=== PATIENT | female | born 1970 | race Caucasian/White ===

== ENCOUNTER 2017-01-17 19:54 | Emergency (ER) | payer OTHER, SELFPAY ==
[2017-01-17] MEDS ORDERED: Sulfameth/Trimethoprim DS 800-160mg TAB ONE (20:29)
[2017-01-17] MEDS ORDERED: Acetaminophen/Codeine 30-300mg Tablet ONE (20:29)
== END 2017-01-17 21:15 | disposition home or self-care (01) ==
LOC: MADERS 19:54
DX: L02.212 Cutaneous abscess of back [any part, except buttock and flank] (principal); L03.312 Cellulitis of back [any part except buttock and flank]; F17.210 Nicotine dependence, cigarettes, uncomplicated
CPT/HCPCS: 10060

== ENCOUNTER 2017-01-21 17:15 | Emergency (ER) | payer SELFPAY | END 2017-01-21 18:18 | disposition home or self-care (01) | LOC: MADERS 17:15 | DX: Z48.01 Encounter for change or removal of surgical wound dressing (principal); F17.210 Nicotine dependence, cigarettes, uncomplicated | CPT/HCPCS: 99282 ==

== ENCOUNTER 2017-06-09 17:21 | Emergency (ER) | payer SELFPAY ==
[~2017-06-09 17:21] MED LIST: Sodium Chloride 0.9% 1,000 ML BAG ONE; Sodium Chloride 0.9% 100 ML BAG ONE; Sodium Chloride Irrig Solution 250 ML BOT ONE
[2017-06-09] MEDS ORDERED: HYDROcodone/Acetaminophen 10/325 mg Tablet ONE (18:41)
[2017-06-09] MEDS ORDERED: Piperacillin/Tazobactam 3.375 GM VIAL ONE (18:41)
[2017-06-09 19:10] LABS: Band 2 % (5-11); Hemoglobin 14.1 g/dL (12.0-16.0); Lymphocytes 7 % (21-51); MDiff Complete? YES; Mean Corpuscular HGB CONC 31.7 g/dL (32.0-36.0); Mean Corpuscular Hemoglobin 27.5 pg (27.0-31.0); Mean Corpuscular Volume 86.6 fl (81.0-99.0); Mean Platelet Volume 9.1 fL (7.4-10.4); Monocytes 8 % (0-10); Neutrophil 83 % (42-75); PLT Morphology Comment Appears Increased; Platelet Count 416 thou/uL (130-400); RBC Distribution Width 12.9 % (11.5-14.5); Red Blood Cell (RBC) Count 5.11 mill/uL (4.20-5.40); White Blood Cell (WBC) Count 20.1 thou/uL (4.8-10.8)
[2017-06-09 19:18] LABS: ALT (SGPT) 10 U/L (8-55); AST (SGOT) 7 U/L (5-34); Albumin 3.9 g/dL (3.5-5.0); Alkaline Phosphatase 134 U/L (40-150); Anion Gap 15 mmol/L (10-20); BUN (Urea Nitrogen) 8 mg/dL (7.0-18.7); Bilirubin, Total 0.3 mg/dL (0.2-1.2); Calc. Creatinine Clearance 0 mL/min (70-130); Calcium 8.9 mg/dL (7.8-10.44); Carbon Dioxide 20 mmol/L (22-29); Chloride 101 mmol/L (98-107); Estimated GFR-MDRD 69; Globulin 3.3 g/dL (2.4-3.5); Glucose 323 mg/dL (70-105); Potassium 3.9 mmol/L (3.5-5.1); Protein, Total 7.2 g/dL (6.0-8.3); Sodium 132 mmol/L (136-145)
[2017-06-09] MEDS ORDERED: Potassium Chloride 20 MEQ TAB ONE (20:59)
[2017-06-09] MEDS ORDERED: Insulin Regular 300 UNITS/3 ML VIAL ONE (20:59)
== END 2017-06-09 21:31 | disposition short-term general hospital (02) ==
LOC: MADERS 17:21
DX: L02.413 Cutaneous abscess of right upper limb (principal); L03.113 Cellulitis of right upper limb; E11.9 Type 2 diabetes mellitus without complications; F17.210 Nicotine dependence, cigarettes, uncomplicated; Z79.899 Other long term (current) drug therapy
CPT/HCPCS: 10060; 36416; 80053; 85025; 87070; 87077; 87186; 87205; 96361; 96365; 96367; 96372; J1815; J2543; J3370; J7050

== ENCOUNTER 2018-02-19 21:22 | Emergency (ER) | payer OTHER, SELFPAY ==
[2018-02-19] MEDS ORDERED: Amoxicillin/Potassium Clav 875 MG TAB ONE (21:54)
[2018-02-19] MEDS ORDERED: HYDROcodone/Acetaminophen 10/325 mg Tablet ONE (21:54)
[2018-02-19] MEDS ORDERED: methylPREDNISolone Sod Succ/PF 125 MG/2 ML VIAL ONE (21:54)
[2018-02-19] MEDS ORDERED: NEOMYCIN-POLYMYXIN-HC EAR SUSP 200 DROP/10 ML BOT ONE (21:55)
== END 2018-02-19 22:18 | disposition home or self-care (01) ==
LOC: MADERS 21:22
DX: H60.92 Unspecified otitis externa, left ear (principal); I10 Essential (primary) hypertension; E11.9 Type 2 diabetes mellitus without complications; F17.210 Nicotine dependence, cigarettes, uncomplicated
CPT/HCPCS: 96372; J2930

== ENCOUNTER 2018-10-07 23:23 | Emergency (ER) | payer OTHER ==
[2018-10-07] MEDS ORDERED: predniSONE 20 MG TAB ONE (23:45)
== END 2018-10-08 01:40 | disposition home or self-care (01) ==
LOC: MADERS 23:23
DX: J20.9 Acute bronchitis, unspecified (principal); I10 Essential (primary) hypertension; E11.9 Type 2 diabetes mellitus without complications; Z87.891 Personal history of nicotine dependence
CPT/HCPCS: 94640; 94760; J7620